=== PATIENT | female | born 1935 | race Asian ===

== ENCOUNTER 2020-12-20 08:11 | Day surgery (SDC) | payer MEDICAID, SELFPAY ==
[~2020-12-20] VITALS: Ht 152.4 cm; Wt 45.4 kg
[2020-12-20] MEDS ORDERED: MEPERIDINE 100 MG INJ. 100 MG/ML VIAL ONE (08:19)
[2020-12-20] MEDS ORDERED: MIDAZOLAM HCL 5 MG/5 ML VIAL ONE (08:20)
[2020-12-20 13:07] VITALS: BP_SYST 133
== END 2020-12-20 10:25 | disposition home or self-care (01) ==
LOC: SDS 08:11 → STU 08:23 → SDS 10:25
PROVIDERS: ATTEND Internal Medicine Gastroenterology
DX: R10.13 Epigastric pain (principal); K21.9 Gastro-esophageal reflux disease without esophagitis; K29.50 Unspecified chronic gastritis without bleeding; K29.80 Duodenitis without bleeding; Z79.899 Other long term (current) drug therapy
CPT/HCPCS: 36415 ×2; 43239; 87081; 87426; 88305; 88312; 88313; 99152; G0378; J2175; J2250